=== PATIENT | male | born 1955 | race Two or more races ===

== ENCOUNTER 2018-08-11 16:24 | Emergency (ER) | payer MEDICAID ==
[~2018-08-11] VITALS: Ht 165.1 cm; Wt 79.4 kg
[2018-08-11 17:01] VITALS: BP 129/81
[2018-08-11] MEDS ORDERED: diphenhdrAMINE HCL 50 MG/1 ML VL IM ONE (17:30)
[2018-08-11] MEDS ORDERED: methylPREDNISolone SOD SUCC 125 MG/2 ML VL IM ONE (17:30)
[2018-08-11] MEDS ORDERED: EPINEPHrine HCL 1 MG/1 ML AMP SC ONE (17:30)
== END 2018-08-11 18:11 | disposition home or self-care (01) ==
LOC: ER 16:35
DX: T78.40XA Allergy, unspecified, initial encounter (principal); I10 Essential (primary) hypertension; X58.XXXA Exposure to other specified factors, initial encounter
CPT/HCPCS: 96372; 99283; J0171; J1200; J2930

== ENCOUNTER 2018-09-22 20:30 | Emergency (ER) | payer MEDICAID ==
[~2018-09-22] VITALS: Ht 165.1 cm; Wt 86.2 kg
[2018-09-22 20:50] VITALS: BP 119/75
[2018-09-23] MEDS ORDERED: methylPREDNISolone SOD SUCC 125 MG/2 ML VL IM ONE (01:00)
== END 2018-09-23 01:39 | disposition home or self-care (01) ==
LOC: ER 20:42
DX: L25.9 Unspecified contact dermatitis, unspecified cause (principal); I10 Essential (primary) hypertension
CPT/HCPCS: 96372; 99283; J2930